=== PATIENT | female | born 1975 | race Caucasian/White ===

== ENCOUNTER → 2017-03-21 | Outpatient (CLI) | payer BC | LOC: CFH 13:03 | PROVIDERS: ATTEND Specialist | DX: Z12.31 Encounter for screening mammogram for malignant neoplasm of breast (principal) | CPT/HCPCS: 77063; 77067 ==

== ENCOUNTER 2018-04-26 12:46 | Outpatient (CLI) | payer BC ==
[2018-04-26] MEDS ORDERED: BIRTH CONTROL PO (13:13)
[2018-04-26] MEDS ORDERED: TRINTELLIX PO (13:13)
== END 2018-04-26 23:59 | disposition home or self-care (01) ==
LOC: STAR 12:46
PROVIDERS: ATTEND Orthopaedic Surgery
DX: Z02.9 Encounter for administrative examinations, unspecified (principal)

== ENCOUNTER 2018-04-30 07:27 | Day surgery (SDC) | payer BC ==
[~2018-04-30] VITALS: Ht 176.5 cm; Wt 154.0 kg
[~2018-04-30 07:27] MED LIST: BIRTH CONTROL PO; TRINTELLIX PO
[2018-04-30] MEDS ORDERED: LACTATED RINGERS 1,000 ML IV SCH (08:43)
[2018-04-30] MEDS ORDERED: morphine SULFATE/PF 1 MG/ML, 10ML ONE (10:08)
[2018-04-30] MEDS ORDERED: LIDOCAINE 1%-EPI 1:100K, 30ML ONE (10:08)
[2018-04-30] MEDS ORDERED: EPINEPHRINE TOPICAL SOLN 1 MG/ML, 30ML ONE (10:15)
[2018-04-30] MEDS ORDERED: FENTANYL PF 100 MCG/2ML ONE ×2 (10:40→11:46)
[2018-04-30] MEDS ORDERED: MIDAZOLAM 1 MG/ML, 2ML ONE (10:40)
[2018-04-30] MEDS ORDERED: ONDANSETRON 2MG/ML, 2ML ONE (10:48)
[2018-04-30] MEDS ORDERED: CEFAZOLIN 1,000 MG ONE (10:48)
[2018-04-30] MEDS ORDERED: PROPOFOL 10 MG/ML, 20ML ONE (10:48)
[2018-04-30] MEDS ORDERED: KETOROLAC 30 MG/1 ML ONE (11:02)
[2018-04-30] MEDS ORDERED: DEXAMETHASONE 4 MG/ML, 5ML ONE (11:02)
[2018-04-30] MEDS ORDERED: PROMETHAZINE 25 MG/ML, 1ML IV PRN (11:30)
[2018-04-30] MEDS ORDERED: MIDAZOLAM 1 MG/ML, 2ML IV PRN (11:30)
[2018-04-30] MEDS ORDERED: ACETAMINOPHEN 325 MG TABLET PO PRN (11:30)
[2018-04-30] MEDS ORDERED: SCOPOLAMINE PATCH, 1.5MG PATCH.TD72 TD PRN (11:30)
[2018-04-30] MEDS ORDERED: ONDANSETRON 2MG/ML, 2ML IV PRN (11:30)
[2018-04-30] MEDS ORDERED: MEPERIDINE/PF 25MG/0.5ML IVPush PRN (11:30)
[2018-04-30] MEDS ORDERED: OXYcodone 5 MG/5 ML ORAL.SOL UDC PO PRN (11:30)
[2018-04-30] MEDS ORDERED: OXYcodone 5 MG/5 ML ORAL.SOL UDC ONE (11:46)
[2018-04-30] MEDS: FENTANYL PF 100 MCG/2ML IV PRN ×2 (11:56→12:06)
[2018-04-30] MEDS ORDERED: HYDROmorphone 1 MG/ML, 1ML ONE ×2 (11:57→12:20)
[2018-04-30] MEDS: HYDROmorphone 2 MG/ML, 1ML IVPush PRN ×3 (11:59→12:24)
[2018-04-30] MEDS ORDERED: MEPERIDINE/PF 25MG/ML,1ML ONE (12:20)
== END 2018-04-30 14:07 | disposition home or self-care (01) ==
LOC: OUT 07:27
PROVIDERS: ATTEND Orthopaedic Surgery
DX: S83.241A Other tear of medial meniscus, current injury, right knee, initial encounter (principal); S83.281A Other tear of lateral meniscus, current injury, right knee, initial encounter; M94.261 Chondromalacia, right knee; M65.861 Other synovitis and tenosynovitis, right lower leg; X58.XXXA Exposure to other specified factors, initial encounter; Y93.89 Activity, other specified; Y92.89 Other specified places as the place of occurrence of the external cause; Y99.8 Other external cause status; Z88.6 Allergy status to analgesic agent; Z88.0 Allergy status to penicillin
CPT/HCPCS: 29880; 81025; J0690; J1100; J1170; J1885; J2175; J2250; J2274; J2405; J2704; J3010; J3490; J7120

== ENCOUNTER → 2019-07-04 | Outpatient (CLI) | payer BC ==
[~2019-07-04] MED LIST changes: +OMNIPAQUE 350 MG/ML, 150 ML BOTTLE ONE
== END | disposition home or self-care (01) ==
LOC: CFH 13:17
PROVIDERS: ATTEND Urology
DX: N39.0 Urinary tract infection, site not specified (principal)
CPT/HCPCS: 74178; Q9967

== ENCOUNTER → 2020-03-01 | Outpatient (CLI) | payer BC ==
[~2020-03-01] MED LIST changes: -OMNIPAQUE 350 MG/ML, 150 ML BOTTLE ONE
== END | disposition home or self-care (01) ==
LOC: CVU 09:10
PROVIDERS: ATTEND Internal Medicine Cardiovascular Disease
DX: I51.7 Cardiomegaly (principal); R00.2 Palpitations
CPT/HCPCS: 93306